=== PATIENT | male | born 1960 | race Caucasian/White ===

== ENCOUNTER 2017-04-05 12:37 | Emergency (ER) | payer OTHER ==
[~2017-04-05] VITALS: Ht 185.4 cm; Wt 88.9 kg
[~2017-04-05 12:37] MED LIST: CITA40TA12 PO; PRLSR20 PO; TRAM-10 PO
[2017-04-05 12:39] VITALS: TEMP 36.9; Ht 185.4 cm; Wt 88.9 kg
[2017-04-05] MEDS ORDERED: XYLOCAINE 1%/SOD BICARB 20 ML VIAL INFIL ONE (13:00)
[2017-04-05] MEDS ORDERED: ACETAMINOPHEN 500 MG TAB PO STA (13:10)
[2017-04-05] MEDS ORDERED: IBUPROFEN 600 MG TAB PO STA (13:10)
--- NOTE | 2017-04-05 14:17 | EMERGENCY ROOM VISIT NOTE ---
ED Visit Note First contact with patient: 12:44 CHIEF COMPLAINT: Left Hand laceration HISTORY OF PRESENT ILLNESS: This 56-year-old male presents the ER with chief complaint of laceration to his left hand. The patient states that he was using a snuff grinder and the snuff grinder wheel broke and came up and hit him on the left hand. The patient denies any numbness and tingling in his fingers. The patient states that it bled a lot but he thinks it is controlled now. The patient is right-hand dominant. The patient's tetanus is up-to-date. REVIEW OF SYSTEMS:6 system review was performed and was negative unless stated otherwise in history of present illness. PMH: The patient is healthy; cervical fusion, sinus surgery SOCIAL HISTORY: Patient lives with his . The patient admits to tobacco use but denies any alcohol use. PHYSICAL EXAM: Vital Signs: Were reviewed Reviewed Nurse's notes. GENERAL: 56- year-old white male appears in no acute distress. MENTAL Status: Alert and oriented 3. LEFT HAND: There is a 4 cm long laceration on the thenar eminence the edges are gaping widely apart. There is no foreign material in the wound and it looks clean. There is no active bleeding. No deep structures such as tendons or nerves are seen in the base of the wound. Extension and flexion of the fingers is full and strong. Sensation to pain and light touch is intact. EMERGENCY DEPARTMENT COURSE: The patient was evaluated. The patient was given Tylenol 1 g by mouth and ibuprofen 6 mg by mouth for pain. Wound Repair: Was performed by my student under my direct supervision. Complexity: Basic. Verbal consent was obtained after the risks and benefits were explained, including but not limited to bleeding, scarring, infection, pain, and bone/joint /nerve damage. The skin was prepped with betadine and a sterile field set. The wound was anesthetized with 10 ml of 1% buffered lidocaine. With direct pressure the bleeding subsided. Copious irrigation was performed using sterile saline. The wound was explored for foreign bodies and none found. Debridement was not performed. The deep tissue was approximated with 2 interrupted 6-0 Vicryl sutures. The wound edges were approximated using 5-0 Ethilon with 8 simple interrupted sutures. Hemostasis and excellent approximation was achieved. Antibacterial ointment and a sterile dressing applied. Detailed wound care instructions and signs and symptoms of infection reviewed with the patient. No complications and the patient tolerated the procedure well. DIAGNOSIS: 4 cm left Hand laceration DISCHARGE INSTRUCTIONS & TREATMENT: Take Keflex as prescribed. Keep wound clean and dry. No water on the area for 12-24 hrs then no soaking until sutures removed. Do not allow any crusting or dried blood to accumulate on sutures. If this occurs, use a 1:1 solution of hydrogen peroxide/water on a Q- tip to clean the wound. Use an antibiotic ointment for 3-4 days, then let wound dry. Suture removal in 10-12 days. Follow up sooner for any signs of infection (increasing redness, swelling, drainage). Ice and elevate for swelling and pain. Tylenol 650 mg every 6 hrs for pain. Current/Historical Medications Scheduled Citalopram Hydrobromide (Celexa), 1 TAB PO QAM Omeprazole (Prilosec), 20 MG PO QAM Scheduled PRN Tramadol (Ultram), 1 TAB PO TID PRN for Pain Allergies Coded Allergies: Hydrocodone (Verified Adverse Reaction, Unknown, gi upset, 01/01/16) Vital Signs Date Time Temp Pulse Resp B/P (MAP) Pulse Ox O2 Delivery O2 Flow Rate FiO2 04/05/17 12:39 36.9 67 20 101/69 98 Room Air Medications Administered Medications (Trade) Dose Ordered Sig/Norris Route Start Time Stop Time Status Last Admin Dose Admin Ibuprofen (Motrin Tab) 600 mg NOW STAT PO 04/05/17 13:10 04/05/17 13:12 DC 04/05/17 13:18 600 MG Acetaminophen (Tylenol Tab) 1,000 mg NOW STAT PO 04/05/17 13:10 04/05/17 13:12 DC 04/05/17 13:18 1,000 MG Departure Information Referrals Yordan Hawley M.D. (PCP) Patient Instructions [facility]
[2017-04-05] MEDS ORDERED: LPT40 PO (14:28)
[2017-04-05] MEDS ORDERED: NRN100 PO (14:28)
[2017-04-05] MEDS ORDERED: METF500T5 PO (14:28)
[2017-04-05] MEDS ORDERED: LSN5 PO (14:28)
[2017-04-05] MEDS ORDERED: VLT50 PO (14:28)
[2017-04-05 14:30] VITALS: BP 118/72; PULSE 76; O2SAT 98
[2017-04-05] MEDS ORDERED: CEPH500C2 PO (14:30)
--- NOTE | 2017-04-05 15:30 | EMERGENCY ROOM VISIT NOTE ---
ED Visit Note First contact with patient: 12:44 I have personally seen and evaluated the patient with the PA. I agree with the diagnosis and management decisions and have been personally involved in the case. Please see Hyun tomas PA-C's notes for further details of the history, physical and visit.
== END 2017-04-05 14:35 | disposition home or self-care (01) ==
LOC: C.EDB 12:38 → C.EDD 14:35
DX: S61.412A Laceration without foreign body of left hand, initial encounter (principal); W31.1XXA Contact with metalworking machines, initial encounter; F17.200 Nicotine dependence, unspecified, uncomplicated